=== PATIENT | male | born 1980 | race African-American/Black ===

== ENCOUNTER 2024-04-26 14:28 | Emergency (ER) | payer SELFPAY ==
[~2024-04-26] VITALS: Ht 193 cm; Wt 90.7 kg
[2024-04-26] MEDS ORDERED: ONDANSETRON 4 MG/2 ML VIAL ONE ×2 (14:39→17:15)
[2024-04-26] MEDS: IV NORMAL SALINE 1000 ML BAG IV ONE ×2 (14:40→16:13)
[2024-04-26] MEDS: ONDANSETRON 4 MG/2 ML VIAL IV ONE ×2 (14:49→17:19)
[2024-04-26 15:05] LABS: ALANINE AMINOTRANSFERASE 13 U/L (16-63); ALKALINE PHOSPHATASE 120 U/L (50-136); ASPARTATE AMINOTRANSFERASE < 5 U/L (15-37); BILIRUBIN,DIRECT 0.2 mg/dL (0.0-0.2); BILIRUBIN,TOTAL 0.7 mg/dL (0.2-1.0); CARBON DIOXIDE 15 mmol/L (21-32); CHLORIDE 100 mmol/L (98-107); CREATININE 0.9 mg/dL (0.6-1.3); GLUCOSE 353 mg/dL (74-106); LIPASE 45 U/L (16-77); POTASSIUM 3.8 mmol/L (3.5-5.1); SODIUM SERUM 135 mmol/L (136-145); TOTAL PROTEIN, SERUM 8.9 g/dL (6.4-8.2); UREA NITROGEN, BLOOD 12 mg/dL (7-18)
[2024-04-26 15:06] LABS: BASOPHILS % (AUTO) 0.4 % (0.0-2.0); EOSINOPHILS % (AUTO) 0.2 % (0.0-7.0); HEMATOCRIT 43.8 % (36.7-47.1); HEMOGLOBIN 14.9 g/dL (12.5-16.3); LYMPHOCYTES % (AUTO) 18.7 % (20.5-51.5); MEAN CORPUSCULAR HEMOGLOBIN 31.2 uug (23.8-33.4); MEAN CORPUSCULAR HGB CONC 34 g/dL (32.5-36.3); MONOCYTES # (AUTO) 0.2 K/uL (0.1-1.30); MONOCYTES % (AUTO) 4.3 % (0.0-11.0); NEUTROPHILS # (AUTO) 4.1 K/uL (1.8-8.9); NEUTROPHILS % (AUTO) 76.4 % (38.5-71.5); PLATELET COUNT (AUTO) 124 K/uL (152-348); RED BLOOD CELL COUNT(AUTO) 4.76 MIL/uL (4.06-5.63); RED CELL DISTRIBUTION WIDTH 13.9 % (12.1-16.2); WHITE BLOOD COUNT (AUTO) 5.4 K/uL (3.6-10.2)
[2024-04-26 15:21] LABS: SITE, VBG Other; VBG AaDO2 86.3 mmHg; VBG BASE EXCESS -5.5 mmol/L (-3-3); VBG HCO3 18.3 mmol/L (22-27); VBG MetHb 0.1 % (0.0-0.5); VBG O2HB 85.4 %; VBG PCO2 31.5 mmHg (41.0-54.0); VBG PH 7.383 (7.310-7.450); VBG PO2 51.3 mmHg (25.0-35.0); VBG TOTAL HEMOGLOBIN 15.5 G/dL (12.0-16.0)
[2024-04-26 15:23] LABS: DIFFERENTIAL COMMENT 1
[2024-04-26 15:28] LABS: CALCIUM 9.1 mg/dL (8.5-10.1)
[2024-04-26 15:35] LABS: *BILIRUBIN,URIN NEGATIVE (NEGATIVE); *BLOOD, URINE NEGATIVE (NEGATIVE); *COLOR,URINE YELLOW (YELLOW); *KETONES,URINE 4+ (NEGATIVE); *PROTEIN,URINE 1+ (NEGATIVE); *UROBILINOGEN,URINE 0.2 E.U./dl (NORMAL); LEUKOCYTE ESTERASE ,URINE NEGATIVE (NEGATIVE); NITRITE, URINE NEGATIVE (NEGATIVE); PH,URINE 5.5 (5.0-8.0); UGLUCOSE 2+ (NEGATIVE)
[2024-04-26 15:36] LABS: *CLARITY,URINE SLIGHTLY CLOUDY (CLEAR)
[2024-04-26] MEDS ORDERED: METOCLOPRAMIDE HCL 10 MG/2 ML VIAL ONE ×2 (16:07→21:30)
[2024-04-26] MEDS ORDERED: diphenhydrAMINE 50 MG/1 ML VIAL ONE (16:07)
[2024-04-26] MEDS ORDERED: INSULIN LISPRO 300 UNIT/3 ML VIAL SQ ONE (16:08)
[2024-04-26] MEDS: METOCLOPRAMIDE HCL 10 MG/2 ML VIAL IV ONE ×2 (16:15→21:40)
[2024-04-26] MEDS: diphenhydrAMINE 50 MG/1 ML VIAL IV ONE (16:20)
[2024-04-26] MEDS ORDERED: INSULIN REGULAR, HUMAN 300 UNIT/3 ML VIAL ONE (16:31)
[2024-04-26] MEDS: INSULIN REGULAR, HUMAN 300 UNIT/3 ML VIAL IV ONE (16:36)
[2024-04-26] MEDS ORDERED: HALOPERIDOL LACTATE 5 MG/1 ML VIAL ONE (17:15)
[2024-04-26 17:18] LABS: RBC,URINE 0-3 /HPF (0-3); WBC,URINE 0-3 /HPF (0-3)
[2024-04-26] MEDS: HALOPERIDOL LACTATE 5 MG/1 ML VIAL IV ONE (17:20)
[2024-04-26] MEDS ORDERED: DEXTROSE 50% 50 ML DISP.SYRIN IV PRN (18:00)
[2024-04-26] MEDS ORDERED: ONDANSETRON 4 MG/2 ML VIAL IV PRN (18:00)
[2024-04-26] MEDS ORDERED: INSULIN REGULAR, HUMAN 300 UNITS/3 ML VIAL SQ PRN (18:00)
[2024-04-26] MEDS ORDERED: MAGNESIUM HYDROXIDE 30 ML LIQUID UDC PO PRN (18:00)
[2024-04-26] MEDS ORDERED: ACETAMINOPHEN 325 MG TABLET PO PRN (18:00)
[2024-04-26] MEDS ORDERED: INSULIN REGULAR, HUMAN 300 UNIT/3 ML VIAL SQ PRN (18:00)
[2024-04-26] MEDS ORDERED: REMEDY ESSENTIAL ZINC PASTE 113 GM TP PRN (18:00)
[2024-04-26 20:41] LABS: CALCIUM 8.9 mg/dL (8.5-10.1); CREATININE 0.9 mg/dL (0.6-1.3); POTASSIUM 3.8 mmol/L (3.5-5.1)
[2024-04-26] MEDS ORDERED: POTASSIUM CHLORIDE 20 MEQ TAB.PRT.SR ONE (21:30)
[2024-04-26] MEDS: INSULIN REGULAR, HUMAN 300 UNIT/3 ML VIAL SQ ONE (21:41)
[2024-04-26] MEDS: POTASSIUM CHLORIDE 20 MEQ TAB.PRT.SR PO ONE (21:43)
[2024-04-26] MEDS: BLOOD SUGAR DIAGNOSTIC 1 EACH STRIP VI SCH (23:20)
[2024-04-26] MEDS ORDERED: METO-295 PO (23:46)
[2024-04-26] MEDS ORDERED: ONDA4TAB5 PO (23:46)
[2024-04-26] MEDS ORDERED: METF-440 PO (23:46)
[2024-04-26] MEDS ORDERED: INSU100V39 SQ (23:46)
[2024-04-26] MEDS: IV NS 1000 ML 1,000 ML IV SCH (23:55)
[2024-04-27 00:16] VITALS: BP 132/90; TEMP 98.6; O2SAT 100
== END 2024-04-27 00:16 | disposition left against medical advice (07) ==
LOC: ER 14:28
DX: E11.65 Type 2 diabetes mellitus with hyperglycemia (principal); R11.2 Nausea with vomiting, unspecified; R19.7 Diarrhea, unspecified; F12.10 Cannabis abuse, uncomplicated; E87.20 Acidosis, unspecified; R82.4 Acetonuria; R81 Glycosuria
CPT/HCPCS: 36415; 36600; 71045; 83690; 85025; 93005; A4606; A4663; J1200; J1630; J1815; J2405; J2765; J7040